=== PATIENT | female | born 1965 | race Asian ===

== ENCOUNTER 2021-02-20 13:34 | Day surgery (SDC) | payer OTHER ==
[2021-02-18 12:19] VITALS: BMI 23.0
[2021-02-20] MEDS ORDERED: BUPIVACAINE LIPOSOME/PF (EXPAREL) 266 MG/20 ML VIAL ONE (14:13)
[2021-02-20] MEDS ORDERED: MIDAZOLAM HCL 2 MG/2 ML SINGLE DOSE VIAL ONE (14:13)
[2021-02-20] MEDS ORDERED: PROPOFOL 20 ML ONE ×2 (14:43)
[2021-02-20] MEDS ORDERED: DEXAMETHASONE SOD PHOSPHATE 10 MG/1 ML VIAL ONE (14:49)
[2021-02-20] MEDS ORDERED: ROPIVACAINE HCL 0.5% 30ML VIAL ONE (14:49)
[2021-02-20] MEDS ORDERED: ceFAZolin SODIUM 1 GM VIAL ONE (15:24)
[2021-02-20] MEDS ORDERED: DEXAMETHASONE SOD PHOSPHATE 4 MG/1 ML VIAL ONE (15:37)
[2021-02-20] MEDS ORDERED: ONDANSETRON 4 MG/2 ML VIAL ONE (15:37)
[2021-02-20] MEDS ORDERED: KETOROLAC TROMETHAMINE 30 MG/1 ML VIAL ONE (15:57)
[2021-02-20] MEDS ORDERED: BUPIVACAINE HCL/PF 0.25% (2.5MG/ML) 10 ML VIAL IJ ONE (16:03)
[2021-02-20] MEDS ORDERED: ONDANSETRON 4 MG/2 ML VIAL IVPUSH PRN (16:17)
[2021-02-20] MEDS ORDERED: oxyCODONE HCL 5 MG TABLET PO PRN (16:17)
[2021-02-20] MEDS ORDERED: LACTATED RINGERS SOLUTION 1,000 ML IV SCH (16:30)
[2021-02-20 17:21] VITALS: PULSE 78; TEMP 98.1
[2021-02-20 18:01] VITALS: BP 138/78
== END 2021-02-20 18:12 | disposition home or self-care (01) ==
LOC: FASU 13:34
PROVIDERS: ATTEND Orthopaedic Surgery Hand Surgery
PROC: 0PSJ04Z Reposition Left Radius with Internal Fixation Device, Open Approach (ICD-10-PCS; principal; 2021-02-20 15:26)
DX: S52.572A Other intraarticular fracture of lower end of left radius, initial encounter for closed fracture (principal); X58.XXXA Exposure to other specified factors, initial encounter; Y92.9 Unspecified place or not applicable; Y93.9 Activity, unspecified
CPT/HCPCS: 73110-TC-LT-FY; 94760; J1100